=== PATIENT | male | born 1995 | race Caucasian/White ===

== ENCOUNTER 2017-02-06 09:26 | Emergency (ER) | payer OTHER ==
[2017-02-06 09:36] VITALS: BP 123/69; PULSE 78; RESP 16; TEMP 98.4; O2SAT 98
[2017-02-06] MEDS ORDERED: DOXYCYCLINE HYCLATE 100 MG CAP/TAB ONE (09:57)
[2017-02-06] MEDS ORDERED: DOXYCYCLINE HYCLATE 100 MG CAP/TAB PO ONE (09:58)
--- NOTE | 2017-02-06 10:02 | EDPHY ---
H & P Time Seen by Provider: 02/06/17 09:40 HPI/ROS: CHIEF COMPLAINT: Left ear infection HISTORY OF PRESENT ILLNESS: Patient is a 21-year-old male who presents emergency department with an infection behind his left ear. Patient stated he 1st noticed an area of redness 1 week ago. It swelled and ultimately broke open. He has had fluid drained from that location was some slight blood. He describes mild to moderate discomfort. No pain inside of his ear. No hearing change. He has no headache. No neck stiffness. No fever or chills. No other rash noted. REVIEW OF SYSTEMS: My complete review of systems is negative except as mentioned in the HPI. Past Medical/Surgical History: Denies Past surgical history: Negative Social history: Patient does not smoke. Smoking Status: Never smoked Physical Exam: Vitals noted GENERAL: Well-appearing, in no acute distress, alert. HEENT: Eyes normal to inspection. Patient has a small lesion behind the pinna of his left ear. His at the base. It appears as though he had a fluid collection that has broken open. There is mild surrounding erythema. No streaking to the head or neck. His TM is negative. No lesions on his external auditory canal. NECK: No thyromegaly, no lymphadenopathy, supple. No redness. RESPIRATORY: Clear to auscultation bilaterally, no rales, rhonchi or wheezing. CVS: Regular rate and rhythm, no rubs, murmurs, or gallops. SKIN: Normal color, no rash, warm, dry. No pallor. EXTREMITIES: Normal. NEURO/PSYCH: Alert and oriented, normal mood and affect, normal motor sensory exam. No obvious cranial nerve deficit. Constitutional: Initial Vital Signs Temperature (C) 36.9 C 02/06/17 09:33 Heart Rate 78 02/06/17 09:33 Respiratory Rate 16 02/06/17 09:33 Blood Pressure 123/69 H 02/06/17 09:33 O2 Sat (%) 98 02/06/17 09:33 O2 Delivery Mode Room Air Allergies/Adverse Reactions: bacitracin [From Neosporin] Allergy (Verified 10/20/11 13:20) bacitracin zinc [From Neosporin] Allergy (Verified 10/20/11 13:20) benzalkonium chloride [From Neosporin] Allergy (Verified 10/20/11 13:20) gramicidin D [From Neosporin] Allergy (Verified 10/20/11 13:20) hydrocortisone [From Neosporin] Allergy (Verified 10/20/11 13:20) neomycin sulfate [From Neosporin] Allergy (Verified 10/20/11 13:20) polymyxin B [From Neosporin] Allergy (Verified 10/20/11 13:20) polymyxin B sulfate [From Neosporin] Allergy (Verified 10/20/11 13:20) Home Medications: Medication Instructions Recorded Miscellaneous Medical Supply [NO 1 ea [facility] AD 10/20/11 HOME MEDS] Doxycycline Hyclate 100 mg PO BID #20 tablet 02/06/17 Medical Decision Making ED Course/Re-evaluation: In the emergency department I discussed possible etiologies with the patient. I answered all his questions. Patient does not appear to have an abscess that needs to be drained at this time. It already broke open. I feel no other fluid collection. Patient was given a prescription for doxycycline. He will follow up with ENT. He is given warnings prior to leaving. Differential Diagnosis: My differential includes but is not limited to cellulitis, abscess, zoster, fungal infection, lymphangitis Departure - Departure Disposition: Home, Routine, Self-Care Clinical Impression: Cellulitis Qualifiers: Site of cellulitis: unspecified site Qualified Code(s): L03.90 - Cellulitis, unspecified Condition: Good Instructions: Cellulitis (ED) Additional Instructions: Apply bacitracin 3 times daily to your ear. Return with increasing redness, swelling, fluid collection or any other concerns. Take your entire course of antibiotics. Call ENT 1st thing Tuesday morning to make an appointment for next week. Referrals: Nick Tapia MD [Medical Doctor] - 3-4 days, if not improved Prescriptions: Doxycycline Hyclate 100 mg PO BID #20 tablet
== END 2017-02-06 10:13 | disposition home or self-care (01) ==
DX: H60.12 Cellulitis of left external ear (principal)